=== PATIENT | male | born 1945 | race Caucasian/White ===

== ENCOUNTER 2023-01-26 11:00 | Outpatient (CLI) | payer MEDICARE, BC, SELFPAY | END 2023-01-26 11:01 | disposition home or self-care (01) | LOC: NFLDREF 01-27 11:25 | PROVIDERS: PCP Family Medicine; Referring Provider Family Medicine; Visit Provider Dermatology | DX: R21 Rash and other nonspecific skin eruption (principal) | CPT/HCPCS: 87070; 87186 ==

== ENCOUNTER 2023-04-23 09:01 | Outpatient (CLI) | payer MEDICARE, BC, SELFPAY | END 2023-04-23 09:02 | disposition home or self-care (01) | PROVIDERS: PCP Family Medicine; Visit Provider Family Medicine | DX: E78.5 Hyperlipidemia, unspecified (principal); G25.81 Restless legs syndrome | CPT/HCPCS: 80048; 80061 ==

== ENCOUNTER 2023-08-26 15:08 | Emergency (ER) | payer MEDICARE, BC, SELFPAY ==
[2023-08-26 15:18] VITALS: BP 124/67; PULSE 85; RESP 18; TEMP 37.7; O2SAT 95; BMI 24.3
--- NOTE | 2023-08-26 16:22 | CRLHL7_ITS ---
For Patients: As a result of the Cures Act, medical imaging exams and procedure reports are released immediately into your electronic medical record. You may view this report before your referring provider. If you have questions, please contact your health care provider. INDICATION: Cough. TECHNIQUE: Chest 2 views. COMPARISON: None. FINDINGS: Cardiovascular and mediastinum: Heart size and vasculature are normal in caliber and appearance. Lungs and pleural spaces: Focal right basilar consolidation. No sign of pleural effusion. No pneumothorax. Bones and soft tissues: No significant findings. IMPRESSION: Focal right basilar consolidation, possibly atelectasis or pneumonia in the appropriate clinical setting. Dictated by Rigo Rodríguez MD @ 08/26/2023 5:06:33 PM (Electronically Signed)
[2023-08-26] MEDS: ALBUTEROL SULFATE 2.5 MG/3 ML VIAL.NEB NEB (16:28)
--- NOTE | 2023-08-26 16:32 | ED_ITS ---
HPI - General Adult General Date Seen: 08/26/23 Chief complaint: Fever Stated complaint: Possible [id number], Up resp symptoms Time Seen by Provider: 08/26/23 15:34 History of Present Illness HPI narrative: this is a pleasant 78-year-old gentleman who presents to the ER today with his For evaluation of cough, laryngitis and hoarse voice, nasal congestion. The patient and his were both exposed to RSV on at the [place] family gathering ( son-in-law did know he had it and inadvertently exposed the whole family). Most of the family members were sick with was a simple viral illness for a few days and are now better. The patient and of his have had persistent cough, nasal congestion, and hoarse voice now for 2 weeks. Today the patient is feeling worse and is now feverish. He is not having any chest pain. No shortness of breath. He is a nonsmoker. No history of asthma or COPD. No headache. No abdominal pain. No nausea or vomiting. No rash. No swelling in his legs. Patient has had a lot of mucousy drainage from his nose and sometimes some mucousy output with his cough. No hemoptysis. Nonsmoker. No history of asthma or COPD. Past medical history includes GERD, eosinophilic esophagitis, hearing loss, cataracts, RLS. Related Data Home Medications Medication Instructions Recorded Confirmed dextroamphetamine-amphetamine 10 10 mg PO QDAY PRN 04/22/23 06/10/23 mg tablet zinc oxide 22 % topical cream 22 applic topical 04/22/23 06/10/23 Previous Rx's Medication Instructions Recorded triamcinolone acetonide 0.1 % 1 applic topical BID #30 grams 01/26/23 topical cream omeprazole 20 mg capsule,delayed 20 mg PO QDAY #30 caps 04/23/23 release ropinirole 0.5 mg tablet 0.5 mg PO QHS #90 tabs 08/03/23 albuterol sulfate 90 mcg/actuation 2 puff inhalation Q6H PRN 08/26/23 aerosol inhaler shortness of breath or wheezing #6.7 grams azithromycin 250 mg tablet See Rx Instructions PO .COMPLEX #6 08/26/23 (Zithromax Z-Levi) tabs oseltamivir 75 mg capsule (Tamiflu) 75 mg PO BID 5 days #10 caps 08/26/23 Allergies Allergy/AdvReac Type Severity Reaction Status Date / Time avocado Allergy Mild nausea, Verified 08/26/23 15:18 fatigue PFSH [facility] Medical History (Updated 08/26/23 @ 17:53 by Praveen Osman MD) Narcolepsy ?G47.419 - Narcolepsy without cataplexy (ICD-10) RLS (restless legs syndrome) ?G25.81 - Restless legs syndrome (ICD-10) Seborrheic keratosis ?L82.1 - Other seborrheic keratosis (ICD-10) Schatzki's ring of distal esophagus ?K22.2 - Esophageal obstruction (ICD-10) Parasomnia ?G47.50 - Parasomnia, unspecified (ICD-10) Multiple actinic keratoses ?L57.0 - Actinic keratosis (ICD-10) Gastroesophageal reflux disease ?K21.9 - Gastro-esophageal reflux disease without esophagitis (ICD-10) Eosinophilic esophagitis ?K20.0 - Eosinophilic esophagitis (ICD-10) Bilateral hearing loss ?H91.93 - Unspecified hearing loss, bilateral (ICD-10) Allergic rhinitis ?J30.9 - Allergic rhinitis, unspecified (ICD-10) Age-related nuclear cataract of both eyes ?H25.13 - Age-related nuclear cataract, bilateral (ICD-10) History of colonic polyps (2009) ?Z86.010 - Personal history of colonic polyps (ICD-10) History of basal cell carcinoma (BCC) ?Z85.828 - Personal history of other malignant neoplasm of skin (ICD-10) Family History (Updated 01/25/23 @ 18:31 by Chato Escudero) Father Lung cancer Social History (Updated 04/25/23 @ 15:44 by Omero Dickerson MD) Narrative: , 3 kids, nonsmoker, 3 drinks/day retired social group worker, recently moved here from [place] to be near grandkids What is your current living situation?: I presently have a place to live Problems where you live: no known problems In the past 12 months, utilities in danger of being shut off: no In past 12 months, lack of transportation kept you from medical appts, meetings, work, or getting things needed for daily living: no In the past 12 mos, have been you worried that your food would run out before you had money to buy more?: never true In the past 12 mos, the food you bought just didn't last and you didn't have money to buy more?: never true Smoking Status: Never smoker Do you use any of these nicotine containing products: None How often do you have a drink containing alcohol: never How often do you have six or more drinks on one occasion: Never AUDIT-C Alcohol total score: 0 Non-prescribed substance use: denies use How often does anyone, including family, friends and others, physically hurt you : never How often does anyone, including family, friends and others, insult or talk down to you: never How often does anyone, including family, friends and others, threaten you with harm: never How often does anyone, including family, friends and others, scream or curse at you: never Little interest or pleasure in doing things: not at all Feeling down, depressed, or hopeless: not at all Exam Narrative: Exam Narrative: Constitutional: Appears well-developed and well-nourished. Alert. Conversant. Non toxic. HENT: Head: Atraumatic. Nose: Nose normal. Bilaterally mastoids and canals are normal. Right TM has some opaque fluid behind it but no erythema or bulging. Left TM is normal. Mouth/Throat: Oral mucosa is clear and moist. no trismus. Pharynx normal. Tonsils symmetric. No tonsillar enlargement, erythema, or exudate. Eyes: Conjunctivae normal. EOM normal. Pupils equal, round, and reactive to light. No scleral icterus. Neck: Normal range of motion. Neck supple. No tracheal deviation present. Cardiovascular: Normal rate, regular rhythm. No gallop. No friction rub. No murmur heard. Symmetric radial artery pulses Pulmonary/Chest: Frequent cough, 1 time productive of a small amount of yellowish/ greenish sputum.Effort normal. No stridor. No respiratory distress. Has difficulty breathing for lung exam because trying to breathe deep makes him cough. Bilateral wheezes and rhonchi . worse on the right than on the left.No tenderness. Abdominal: Soft. No distension. No mass. No tenderness. Musculoskeletal: RUE: Normal range of motion. No tenderness. No deformity LUE: Normal range of motion. No tenderness. No deformity RLE: Normal range of motion. No edema. No tenderness. No deformity LLE: Normal range of motion. No edema. No tenderness. No deformity Lymph: No cervical adenopathy. Neurological: Alert and oriented to person, place, and time. Normal strength. CN II-VII intact. No sensory deficit. GCS eye subscore is 4. GCS verbal subscore is 5. GCS motor subscore is 6. Normal coordination Skin: Skin is warm and dry. No rash noted. No pallor. Normal capillary refill. Psychiatric: Normal mood. Normal affect. Const: Vital Signs, click to edit/add: Vital Signs - 24 hr 08/26/23 15:18 08/26/23 16:37 08/26/23 17:21 Temperature 100 F H 100 F H Pulse Rate [Pulse Oximeter] 85 81 Respiratory Rate 18 18 18 Blood Pressure [Ri t Upper Arm] 124/67 112/70 Pulse Oximetry 95 95 Oxygen Delivery Me thod Room Air Room Air Course Reevaluation(s) Reevaluation #1: . Her recheck -note that he feels improved after nebulizer. Repeat lung exam reveals much improved aeration and decreased wheezing. Still a few wheezes and rales in the base. Vital Signs Vital signs: Initial Vital Signs Temperature 100 F H 08/26/23 15:18 Temperature Source Temporal Artery Scan 08/26/23 15:18 Pulse Rate 85 08/26/23 15:18 Respiratory Rate 18 08/26/23 15:18 Blood Pressure 124/67 08/26/23 15:18 Blood Pressure Mean 86 08/26/23 15:18 Blood Pressure Position Sitting 08/26/23 15:18 Pulse Oximetry 95 08/26/23 15:18 Oxygen Delivery Method Room Air 08/26/23 15:18 Vital Signs Temperature 100 F H 08/26/23 15:18 Pulse Rate 85 08/26/23 15:18 Respiratory Rate 18 08/26/23 15:18 Blood Pressure 124/67 08/26/23 15:18 Pulse Oximetry 95 08/26/23 15:18 Oxygen Delivery Method Room Air 08/26/23 15:18 Temperature 100 F H 08/26/23 17:21 Pulse Rate 81 08/26/23 17:21 Respiratory Rate 18 08/26/23 17:21 Blood Pressure 112/70 08/26/23 17:21 Pulse Oximetry 95 08/26/23 17:21 Oxygen Delivery Method Room Air 08/26/23 17:21 Medications Administered Medications: Discontinued Medications Generic Name Dose Route Start Last Admin Trade Name Subha PRN Reason Stop Dose Admin Albuterol 2.5 mg 08/26/23 16:22 08/26/23 16:28 Albuterol Sulfate 2.5 Mg/3 Ml Vial.[facility] 08/26/23 16:23 2.5 mg ONCE ONE Administration Medical Decision Making MDM Narrative Medical decision making narrative: This patient presents for evaluation of Cough ongoing for the past 2 weeks, now worse today with development of fever today. He and his are here with a similar presentation, they were exposed RSV on and then developed symptoms a few days after. They both this been sick for about 2 weeks. He is now getting worse with worsening cough and fever today. Viral testing today is negative for coronavirus and RSV. He is surprisingly positive for influenza A. I suspect that he may be coming down with influenza. This may explain his development of fever today. With cough ongoing for 2 weeks, but only developing a fever today, it is difficult to know exactly when his 1st day of symptoms for and influenza was. With the new fever, I presume influenza is beginning today. Will treat him with Tamiflu. Given his duration of cough and abnormal lung exam findings we did obtain a chest x-ray which suggest a possible right lower lobe infiltrate. At this point difficult to know if that is a bacterial pneumonia, viral pneumonia from RSV or influenza. We will treat with Tamiflu. Will also cover with Azithromycin in case this is a bacterial infection. He also has wheezing and bronchospasm on his initial exam. He has no history of asthma, COPD, tobacco use. Suspect this is probably viral induced wheezing. He improved nicely with albuterol nebulizer here. For symptomatic relief will give him albuterol inhaler to use at home. There is no signs at this point of serious bacterial infection such as OM, RPA, epiglottitis, DIE FITTER, strep pharyngitis, pneumonia, sinusitis, meningitis, bacteremia, serious bacterial infection. There are no gastrointestinal symptoms at this point and no signs of dehydration. at this point I do not think he needs laboratory workup or hospitalization. Close followup with primary care physician is indicated. discussed the risk of worsening with influenza.Return to ED for Higher fever, worsening trouble breathing, worsening cough, shortness of breath, vomiting, confusion, or other worsening. Lab Data Labs: Lab Results 08/26/23 Range/Units 15:51 SARS-CoV-2 (PCR) Negative SARS-CoV-2 (Negative) Influenza Type A (PCR) POSITIVE PCR FLU A A (Negative) Influenza Type B (PCR) Negative PCR FLU B (Negative) RSV (PCR) Negative PCR RSV (Negative) Imaging Data Chest x-ray: Attestation: I have reviewed the pertinent imaging results. Radiologist's impression: IMPRESSION: No acute or significant findings. Discharge Plan Discharge Clinical Impression: Influenza A, Acute bronchospasm, Pneumonia Patient Disposition: Home, Self-Care Condition: Stable Instructions: Influenza (DC), Community Acquired Pneumonia (DC), Bronchospasm (ED) Additional Instructions: felt as we discussed, come back to the ER right away the if you have any worsening trouble breathing, high fever, weakness, or any other problems. You should stay home and quarantine until your cough is improving and you have been afebrile for 24 hours. use Tamiflu to help treat influenza. We are also going to put you on an antibiotic ( Azithromycin) because you have a right lower lobe pneumonia. Use the albuterol inhaler to help treat your cough. I think your infections are triggering wheezing like an asthma attack. Prescriptions: New albuterol sulfate 90 mcg/actuation HFA aerosol inhaler 2 puff inhalation Q6H PRN (Reason: shortness of breath or wheezing) Qty: 6.7 0RF azithromycin [Zithromax Z-Levi] 250 mg tablet See Rx Instructions .ROUTE .COMPLEX Qty: 6 0RF Rx Instructions: For 250 mg dose pack: take 500 mg today (day 1), then 250 mg for 4 days (days 2-5) oseltamivir [Tamiflu] 75 mg capsule 75 mg PO BID 5 Days Qty: 10 0RF No Action triamcinolone acetonide 0.1 % cream 1 applic topical BID Qty: 30 1RF Rx Instructions: Apply topically to affected area twice daily as needed, put cream away when skin is clear zinc oxide 22 % cream 22 applic topical dextroamphetamine-amphetamine 10 mg tablet 10 mg PO QDAY PRN omeprazole 20 mg capsule,delayed release(DR/EC) 20 mg PO QDAY Qty: 30 1RF ropinirole 0.5 mg tablet 0.5 mg PO QHS Qty: 90 2RF Rx Instructions: administer 1-3 hours before bedtime Follow Up/Referrals: Omero Dickerson MD [Primary Care Provider] - Stand Alone Forms: Luminal Info Instructions
[2023-08-26 16:37] VITALS: RESP 18
[2023-08-26 16:55] LABS: PCR FLU A POSITIVE PCR FLU A (Negative); PCR FLU B Negative PCR FLU B (Negative); PCR RSV Negative PCR RSV (Negative); SARS PCR* Negative SARS-CoV-2 (Negative)
[2023-08-26 17:21] VITALS: BP 112/70; PULSE 81; RESP 18; TEMP 37.7; O2SAT 95
== END 2023-08-26 18:05 | disposition home or self-care (01) ==
PROVIDERS: Emergency Provider Emergency Medicine; PCP Family Medicine
DX: J09.X2 Influenza due to identified novel influenza A virus with other respiratory manifestations (principal); J98.01 Acute bronchospasm; J18.9 Pneumonia, unspecified organism
CPT/HCPCS: 71046; 87631; 94640; 99283; 99284

== ENCOUNTER 2024-05-02 20:14 | Outpatient (CLI) | payer MEDICARE, BC, SELFPAY | END 2024-05-02 20:15 | disposition home or self-care (01) | LOC: SLEEP 20:17 | PROVIDERS: PCP Family Medicine; Visit Provider Internal Medicine | DX: G47.52 REM sleep behavior disorder (principal); G25.81 Restless legs syndrome | CPT/HCPCS: 95810 ==

== ENCOUNTER 2025-02-15 09:10 | Outpatient (CLI) | payer MEDICARE, BC, SELFPAY | END 2025-02-15 09:11 | disposition home or self-care (01) | PROVIDERS: PCP Family Medicine; Visit Provider Family Medicine | DX: K21.9 Gastro-esophageal reflux disease without esophagitis (principal); Z13.6 Encounter for screening for cardiovascular disorders | CPT/HCPCS: 80048; 80061; 85025 ==